=== PATIENT | female | born 1980 | race Caucasian/White ===

== ENCOUNTER 2020-04-13 06:01 | Emergency (ER) | payer BC, OTHER ==
[~2020-04-13] VITALS: Ht 157.5 cm; Wt 52.2 kg
[~2020-04-13 06:01] MED LIST: ARMOUR THYROID PO
--- NOTE | 2020-04-13 06:26 | NUR ---
Patient discharged to home in stable condition. Written and verbal after care instructions given. Patient verbalizes understanding of instructions. Stressed follow up or return to ER for worsening s/s.
[2020-04-13 06:28] VITALS: BP 129/88
== END 2020-04-13 06:28 | disposition home or self-care (01) ==
LOC: ER 06:13
DX: S60.941A Unspecified superficial injury of left index finger, initial encounter (principal); X58.XXXA Exposure to other specified factors, initial encounter; Y92.89 Other specified places as the place of occurrence of the external cause; R01.1 Cardiac murmur, unspecified; E03.9 Hypothyroidism, unspecified
CPT/HCPCS: A4663